=== PATIENT | female | born 2000 | race Caucasian/White ===

== ENCOUNTER 2024-12-15 05:03 | Observation (INO) | payer MEDICAID, SELFPAY ==
[2024-12-15] VITALS (25 sets, daily range): BP systolic 102–111; BP diastolic 66–73; PULSE 72–97; RESP 16–99; TEMP 36.9; O2SAT 92–100; BMI 27.6
--- NOTE | 2024-12-15 05:49 | XR_ITS ---
Examination: Complete OB ultrasound greater than 14 weeks Date and time of exam: December 15, 2024, 0614 hours INDICATIONS: Patient fell today with injury to the pelvis Findings: Viable intrauterine single fetus with single amniotic sac presentation breech spine maternal right Cardiac motion 140 bpm Placenta posterior grade 1 Umbilical cord insertion seen, umbilical cord appears thickened Amniotic fluid index 11.7 cm Cervix 3.7 cm Right ovary 2.4 cm arterial flow Left ovary obscured by bowel gas Composite estimated gestational age based on BPD, head circumference, abdominal circumference, femur length is 26 weeks 0 days Estimated weight 928 g. Survey of intracranial anatomy, spinal anatomy, abdominal anatomy, four-chamber heart performed with no abnormalities identified. Impression: Viable intrauterine gestation in breech presentation Umbilical CORD three-vessel appears thickened Recommend repeat pelvic sonography today.
[2024-12-15] MEDS: ACETAMINOPHEN 325 MG TABLET 650 MG PO (06:37)
[2024-12-15 06:43] LABS: Basophils # (Auto) 0.0 Thou/mm3 (0.0-0.2); Basophils % (Auto) 1 % (0-2.5); Eosinophils # (Auto) 0.1 Thou/mm3 (0.0-0.5); Eosinophils % (Auto) 1 % (0-10); Hematocrit 28.4 % (36.0-46.0); Hemoglobin 9.3 g/dL (12.0-16.0); Immature Granulocytes Auto 0.05 Thou/mm3 (0.00-0.00); Lymphocytes # (Auto) 1.9 Thou/mm3 (1.0-4.8); Lymphocytes % (Auto) 23 % (10-50); Mean Corpuscular HGB Conc 32.7 g/dl (31.0-37.0); Mean Corpuscular Hemoglobin 28.4 pg (25.0-35.0); Mean Corpuscular Volume 87 fL (80-100); Monocytes # (Auto) 0.6 Thou/mm3 (0.0-0.8); Monocytes % (Auto) 8 % (0-12); Neutrophils # (Auto) 5.6 Thou/mm3 (1.8-7.7); Neutrophils % (Auto) 68 % (37-80); Nucleated Red Blood Cell # 0.00 Thou/mm3 (0.00-0.00); Nucleated Red Blood Cell % 0 /100 WBC (0); Platelet Count 175 Thou/mm3 (140-440); RDW Standard Deviation 41.3 fL (36.4-46.3); Red Blood Count 3.27 Miln/mm3 (4.00-5.20); White Blood Count 8.4 Thou/mm3 (3.6-11.0)
[2024-12-15 07:08] LABS: INR 0.9 (0.9-1.3); Partial Thromboplastin Time 22.0 Seconds (22.0-36.0); Prothrombin Time 9.8 Seconds (9.0-12.2)
[2024-12-15] MEDS: FERRIC SOD GLUC INJ 125 MG in SODIUM CHLORIDE 0.9% 100 ML 110 MG IV (08:00)
[2024-12-15 08:42] LABS: Collection Type, Urine Clean Catch
[2024-12-15 09:14] LABS: FFN Specimen Descripton Clr Colrless Aqueous; Fetal Fibronectin Negative (Negative)
[2024-12-15 09:16] LABS: Bilirubin,Urine Negative (Negative); Blood,Urine Negative (Negative); Clarity,Urine Clear (Clear/Hazy); Color,Urine Colorless (Lt Yel-Yel); Glucose, Urine Negative (Negative); Ketones,Urine Negative (Negative); Leukocyte Esterase,Urine Positive (Negative); Nitrite,Urine Negative (Negative); PH,Urine 7.0 (5.0-7.0); Protein,Urine Negative (Neg - Trace); RBC,Urine < 1 /hpf (0-3); Specific Gravity,Urine 1.005 (1.001-1.035); Squamous Epithelial Cell,Urine 1 /hpf (0-5); Urobilinogen,Urine Negative mg/dL (0.0-1.0); WBC,Urine 3 /hpf (0-5)
== END 2024-12-15 10:15 | disposition home or self-care (01) ==
PROVIDERS: Obstetrics & Gynecology; Admitting Provider Obstetrics & Gynecology; Visit Provider Obstetrics & Gynecology
DX: Z34.82 Encounter for supervision of other normal pregnancy, second trimester (principal); Z3A.26 26 weeks gestation of pregnancy
CPT/HCPCS: 36415; 59025; 59899; 76805; 81001; 82731; 85025; 85610; 85730; 86850; 86900; 86901; 87086; J2916; J7050; A9270